=== PATIENT | female | born 1945 | race Caucasian/White ===

== ENCOUNTER 2017-03-29 08:46 | Emergency (ER) | payer OTHER ==
[~2017-03-29] VITALS: Ht 152.4 cm; Wt 75.3 kg
[2017-03-29 12:02] VITALS: BP 131/88
== END 2017-03-29 12:02 | disposition home or self-care (01) ==
LOC: ED 08:46
DX: S09.8XXA Other specified injuries of head, initial encounter (principal); S99.912A Unspecified injury of left ankle, initial encounter; I10 Essential (primary) hypertension; E11.9 Type 2 diabetes mellitus without complications; W01.198A Fall on same level from slipping, tripping and stumbling with subsequent striking against other object, initial encounter; Y93.01 Activity, walking, marching and hiking; Y99.8 Other external cause status; Y92.89 Other specified places as the place of occurrence of the external cause